=== PATIENT | female | born 1965 | race Caucasian/White ===

== ENCOUNTER 2017-07-12 13:36 | Day surgery (SDC) | payer BC, OTHER ==
[~2017-07-12] VITALS: Ht 162.6 cm; Wt 78.6 kg
[~2017-07-12 13:36] MED LIST: CONEST.625; ESTR2; FENO145
[2017-07-12] MEDS ORDERED: VASCEPA1 GM (14:11)
[2017-07-12] MEDS ORDERED: VALA500 (14:12)
== END 2017-07-12 16:00 | disposition home or self-care (01) ==
LOC: ORSCSDS 13:36
PROVIDERS: Internal Medicine Gastroenterology
PROC: 0DBL8ZX Excision of Transverse Colon, Via Natural or Artificial Opening Endoscopic, Diagnostic (ICD-10-PCS; principal; 2017-07-12 15:00)
DX: Z12.11 Encounter for screening for malignant neoplasm of colon (principal); D12.3 Benign neoplasm of transverse colon; K63.89 Other specified diseases of intestine; K64.8 Other hemorrhoids; K57.30 Diverticulosis of large intestine without perforation or abscess without bleeding; Z87.19 Personal history of other diseases of the digestive system; I10 Essential (primary) hypertension; E11.9 Type 2 diabetes mellitus without complications; J45.909 Unspecified asthma, uncomplicated; F41.9 Anxiety disorder, unspecified; F32.9 Major depressive disorder, single episode, unspecified; Z87.891 Personal history of nicotine dependence
CPT/HCPCS: 88305; J7120

== ENCOUNTER 2019-05-20 05:53 | Day surgery (SDC) | payer BC, OTHER ==
[~2019-05-20] VITALS: Ht 162.6 cm; Wt 83.2 kg
[~2019-05-20 05:53] MED LIST changes: +ESTRADIOL PO; +FENOFIBRATE PO; +SULI150 PO; +VALA500 PO; +VASCEPA1 GM PO
--- NOTE | 2019-05-20 07:04 | NUR ---
Ambulatory in Day Surgery. Surgical site prepped with 2% Chlorhexidine cloth wipe. History, Chart, Medications and Allergies reviewed before start of procedure.Lungs clear T/O to Auscultation. Patient confirms NPO status and agrees with scheduled surgery. Pre-Op teaching done. Pt verbalizes understanding. Patient States Post-Procedure ride home has been arranged. Patient reports completing Chlorhexadine shower X2 prior to admission to hospital.
--- NOTE | 2019-05-20 10:40 | NUR ---
RECIEVED REPORT AND PATIENT. VSS TAKING ICE CHIPS DRESSING CDI TIMES 4 AND 2 BANDAIDS
--- NOTE | 2019-05-20 11:12 | NUR ---
Discharge instructions reviewed with patient. Patient verbalizes understanding. Copy given to patient to take home. Discharged via wheelchair to private car for ride home.
--- NOTE | 2019-05-23 07:26 | NUR ---
05/23/19 0726 Aleta Jones VERIFICATIONS: EDIT CHART.
== END 2019-05-20 22:55 | disposition home or self-care (01) ==
LOC: ORSCMMR 05:53 → ORD 07:30 → ORSCMMR 07:30
PROVIDERS: Surgery
PROC: 0FT44ZZ Resection of Gallbladder, Percutaneous Endoscopic Approach (ICD-10-PCS; principal; 2019-05-20 07:30)
PROC: BF121ZZ Fluoroscopy of Gallbladder using Low Osmolar Contrast (ICD-10-PCS; principal; 2019-05-20 07:30)
DX: K80.20 Calculus of gallbladder without cholecystitis without obstruction (principal); E78.5 Hyperlipidemia, unspecified; K21.9 Gastro-esophageal reflux disease without esophagitis; Z79.899 Other long term (current) drug therapy
CPT/HCPCS: 74300; 88304; C1729; C1894; J0694; J1100; J2405; J2704; J3010; J7120

== ENCOUNTER 2021-05-31 11:36 | Day surgery (SDC) | payer BC, OTHER | END 2021-05-31 16:30 | disposition home or self-care (01) | LOC: ATC 11:36 | DX: U07.1 COVID-19 (principal) | CPT/HCPCS: 96365; Q0243 ==

== ENCOUNTER 2023-03-29 08:52 | Day surgery (SDC) | payer BC, OTHER ==
[~2023-03-29] VITALS: Ht 162.6 cm; Wt 81.7 kg
[2023-03-29] MEDS ORDERED: CEQUA1 EACH (09:19)
[2023-03-29] MEDS ORDERED: CLIMARA1 EACH (09:20)
[2023-03-29] MEDS ORDERED: FENO67 (09:21)
[2023-03-29 10:58] VITALS: BP 121/65
== END 2023-03-29 10:55 | disposition home or self-care (01) ==
LOC: ORSCSDS 08:52
PROVIDERS: Internal Medicine Gastroenterology
PROC: 0DBM8ZX Excision of Descending Colon, Via Natural or Artificial Opening Endoscopic, Diagnostic (ICD-10-PCS; principal; 2023-03-29 10:30)
PROC: 0DBC8ZX Excision of Ileocecal Valve, Via Natural or Artificial Opening Endoscopic, Diagnostic (ICD-10-PCS; principal; 2023-03-29 10:30)
DX: Z12.11 Encounter for screening for malignant neoplasm of colon (principal); Z86.010 Personal history of colon polyps; K63.5 Polyp of colon; K57.30 Diverticulosis of large intestine without perforation or abscess without bleeding; K64.4 Residual hemorrhoidal skin tags; K63.3 Ulcer of intestine; K63.89 Other specified diseases of intestine; K52.9 Noninfective gastroenteritis and colitis, unspecified; Q43.1 Hirschsprung's disease; E11.9 Type 2 diabetes mellitus without complications; F32.A Depression, unspecified; I10 Essential (primary) hypertension; Z79.899 Other long term (current) drug therapy
CPT/HCPCS: 88305; J2704; J7120

== ENCOUNTER 2023-09-20 04:29 | Day surgery (SDC) | payer BC, OTHER ==
[~2023-09-20 04:29] MED LIST changes: +CEQUA1 EACH; +CLIMARA1 EACH; +FENO67
[2023-09-20] MEDS ORDERED: Infliximab-DYYB 450 MG in NS 250 ML IV SCH (06:00)
[2023-09-20] MEDS ORDERED: Hydrocortisone Sod Succinate 100 MG Vial IV SCH (06:50)
[2023-09-20] MEDS ORDERED: Acetaminophen 325 MG TABLET PO SCH (06:50)
[2023-09-20] MEDS ORDERED: DiphenhydrAMINE HCL 25 MG Cap PO SCH (06:50)
[2023-09-20 07:40] VITALS: BP 123/72
[2023-09-20 09:29] VITALS: BP 127/74
[2023-09-20 09:46] VITALS: BP 119/86
== END 2023-09-20 10:55 | disposition home or self-care (01) ==
LOC: ATC 04:29
DX: K50.00 Crohn's disease of small intestine without complications (principal)
CPT/HCPCS: 96413; 96415; A9270; J7050; Q5103

== ENCOUNTER 2023-10-05 05:07 | Day surgery (SDC) | payer BC, OTHER ==
[2023-10-05 13:47] VITALS: BP 155/86
== END 2023-10-05 16:09 | disposition home or self-care (01) ==
LOC: ATC 05:07
DX: K50.00 Crohn's disease of small intestine without complications (principal); I10 Essential (primary) hypertension; E11.9 Type 2 diabetes mellitus without complications; J45.909 Unspecified asthma, uncomplicated

== ENCOUNTER 2024-02-21 02:42 | Day surgery (SDC) | payer BC, OTHER ==
[2024-02-21] MEDS ORDERED: Infliximab-DYYB 450 MG in NS 250 ML IV SCH (06:00)
[2024-02-21] MEDS ORDERED: Acetaminophen 325 MG TABLET PO SCH (07:00)
[2024-02-21] MEDS ORDERED: DiphenhydrAMINE HCL 25 MG Cap PO SCH (07:00)
[2024-02-21 14:54] VITALS: BP 160/81
== END 2024-02-21 17:43 | disposition home or self-care (01) ==
LOC: ATC 02:42
DX: K50.00 Crohn's disease of small intestine without complications (principal); I10 Essential (primary) hypertension; E11.9 Type 2 diabetes mellitus without complications; J45.909 Unspecified asthma, uncomplicated; Z86.010 Personal history of colon polyps; Z79.899 Other long term (current) drug therapy
CPT/HCPCS: 96413; 96415; A9270; J7050; Q5103

== ENCOUNTER 2024-05-15 05:52 | Day surgery (SDC) | payer BC, OTHER ==
[2024-05-15] MEDS ORDERED: Infliximab-DYYB 450 MG in NS 250 ML IV SCH (06:00)
[2024-05-15] MEDS ORDERED: DiphenhydrAMINE HCL 25 MG Cap PO SCH (07:05)
[2024-05-15] MEDS ORDERED: Hydrocortisone Sod Succinate 100 MG Vial IV SCH (07:05)
[2024-05-15] MEDS ORDERED: Acetaminophen 325 MG TABLET PO SCH (07:05)
[2024-05-15 15:31] VITALS: BP 137/97
== END 2024-05-15 17:42 | disposition home or self-care (01) ==
LOC: ATC 05:52
DX: K50.00 Crohn's disease of small intestine without complications (principal); I11.9 Hypertensive heart disease without heart failure; E11.9 Type 2 diabetes mellitus without complications; J45.909 Unspecified asthma, uncomplicated; Z79.899 Other long term (current) drug therapy
CPT/HCPCS: 96413; 96415; A9270; J7050; Q5103

== ENCOUNTER 2024-06-12 02:17 | Day surgery (SDC) | payer BC, OTHER ==
[2024-06-12] MEDS ORDERED: Infliximab-DYYB 450 MG in NS 250 ML IV SCH (06:00)
[2024-06-12] MEDS ORDERED: Hydrocortisone Sod Succinate 100 MG Vial IV SCH (07:00)
[2024-06-12] MEDS ORDERED: DiphenhydrAMINE HCL 25 MG Cap PO SCH (07:00)
[2024-06-12] MEDS ORDERED: Acetaminophen 325 MG TABLET PO SCH (07:00)
[2024-06-12 15:20] VITALS: BP 156/81
== END 2024-06-12 17:48 | disposition home or self-care (01) ==
LOC: ATC 02:17
DX: K50.00 Crohn's disease of small intestine without complications (principal); I10 Essential (primary) hypertension; E11.9 Type 2 diabetes mellitus without complications; J45.909 Unspecified asthma, uncomplicated; K59.09 Other constipation; Z79.899 Other long term (current) drug therapy; Z86.0101 Personal history of adenomatous and serrated colon polyps
CPT/HCPCS: 96413; 96415; A9270; J7050; Q5103

== ENCOUNTER 2024-07-17 02:38 | Day surgery (SDC) | payer BC, OTHER ==
[~2024-07-17] VITALS: Wt 85.8 kg
[2024-07-17] MEDS ORDERED: Infliximab-DYYB 450 MG in NS 250 ML IV SCH (06:00)
[2024-07-17 15:01] VITALS: BP 159/89
[2024-07-17] MEDS ORDERED: DiphenhydrAMINE HCL 25 MG Cap PO SCH (16:00)
[2024-07-17] MEDS ORDERED: Acetaminophen 325 MG TABLET PO SCH (16:00)
== END 2024-07-17 17:50 | disposition home or self-care (01) ==
LOC: ATC 02:38
DX: K50.00 Crohn's disease of small intestine without complications (principal); I10 Essential (primary) hypertension; J45.909 Unspecified asthma, uncomplicated; E11.9 Type 2 diabetes mellitus without complications; K59.09 Other constipation
CPT/HCPCS: 96413; 96415; A9270; J7050; Q5103